=== PATIENT | male | born 1985 | race Caucasian/White ===

== ENCOUNTER 2018-07-17 15:09 | Emergency (ER) | payer OTHER ==
[2018-07-17] MEDS: LORAZEPAM 1 MG TAB PO (15:58)
== END 2018-07-17 16:45 | disposition home or self-care (01) ==
LOC: FTE 15:09
DX: F41.9 Anxiety disorder, unspecified (principal); R06.02 Shortness of breath
CPT/HCPCS: 71045; 93005; 99284-25